=== PATIENT | male | born 1960 ===

== ENCOUNTER 2017-02-10 12:37 | Emergency (ER) | payer OTHER ==
[2017-02-10 13:30] VITALS: BP 136/87
--- NOTE | 2017-02-10 13:32 | UC ---
Lower Extremity/Ankle HPI - HPI Summary HPI Summary: Patient presents to with CC of right lateral foot pain with deformity x several years with now worsening pain. He notes to accidentally hitting the side of the foot yesterday with now worsening pain. He is ambulating but with pain. He states the deformity has been present, but only has intermittent pain when he inadvertently bumps it or wears certain shoes. Denies diabetes or other health problems. - History of Current Complaint Chief Complaint: UCLowerExtremity Stated Complaint: RIGHT FOOT PAIN Time Seen by Provider: 02/10/17 12:59 Hx Obtained From: Patient Onset/Duration: Sudden Onset Severity Initially: Moderate Severity Currently: Moderate Pain Intensity: 8 Pain Scale Used: 0-10 Numeric Aggravating Factor(s): Standing, Ambulation Alleviating Factor(s): Rest Able to Bear Weight: No - Risk Factors Gout Risk Factors: Negative DVT Risk Factors: Negative Septic Arthritis Risk Factor: Negative - Allergies/Home Medications Allergies/Adverse Reactions: Allergies Allergy/AdvReac Type Severity Reaction Status Date / Time No Known Allergies Allergy Verified 02/10/17 12:59 Home Medications: Home Medications Amlodipine Besylate [Norvasc 2.5 mg tab] 2.5 mg PO DAILY 02/10/17 [History Confirmed 02/10/17] Escitalopram Oxalate [Lexapro 10 mg] 10 mg PO DAILY 02/10/17 [History Confirmed 02/10/17] Gabapentin CAP(*) [Neurontin 100 mg CAP(*)] 100 mg PO TID 02/10/17 [History Confirmed 02/10/17] Metoprolol Succinate [Toprol Xl] 25 mg PO DAILY 02/10/17 [History Confirmed ] Oxycodone W/ Acetaminophen [Endocet] 1 tab PO DAILY PRN 02/10/17 [History Confirmed 02/10/17] rOPINIRole TAB* [Requip TAB*] 1 mg PO DAILY 02/10/17 [History Confirmed 02/10/17 ] PMH/Surg Hx/FS Hx/Imm Hx Previously Healthy: Yes - Surgical History Surgical History: None - Family History Known Family History: Positive: Unknown - Social History Occupation: Employed Full-time Alcohol Use: None Substance Use Type: None Smoking Status (MU): Never Smoked Tobacco Review of Systems Constitutional: Negative Skin: Negative Respiratory: Negative Cardiovascular: Negative Genitourinary: Negative Motor: Negative Neurovascular: Negative Musculoskeletal: Arthralgia - lateral foot deformity Neurological: Negative Psychological: Negative All Other Systems Reviewed And Are Negative: Yes Physical Exam Triage Information Reviewed: Yes Appearance: Well-Appearing, No Pain Distress, Well-Nourished Vital Signs: Initial Vital Signs Temp 98.2 F 02/10/17 12:41 Pulse 64 02/10/17 12:41 BP 136/87 02/10/17 12:41 Pulse Ox 97 02/10/17 12:41 Vital Signs Reviewed: Yes Eyes: Positive: Conjunctiva Clear ENT Exam: Normal ENT: Positive: Normal ENT inspection Neck exam: Normal Neck: Positive: Supple, No Lymphadenopathy Respiratory Exam: Normal Respiratory: Positive: Chest non-tender, Lungs clear Cardiovascular Exam: Normal Cardiovascular: Positive: RRR Musculoskeletal: Positive: ROM Intact, Other: - deformity over lateral right foot Neurological Exam: Normal Neurological: Positive: Alert Psychological: Positive: Normal Response To Family, Age Appropriate Behavior Skin Exam: Normal Lower Extremity Course/Dx - Course Course Of Treatment: Patient sent to ay. Soft tissue swelling noted over the lateral right foot with obvious deformity. He stated on arrival that he has been taking ibuprofen and tylenol without relief of pain. He is requesting something stronger for pain medicine and stated he did not know what "oxycodone or percoset" meant asked about side effects. It was explained to patient about side effects and he stated he would like those medications. Upon Istop, it shows he was recently dispersed those medications for unknown reasons. Upon informing the patient, he became agitated and requested to be discharged. Referral for Dr. Mendoza given. - Differential Dx/Diagnosis Differential Diagnosis/HQI/PQRI: Fracture (Closed), Fracture (Open), Sprain, Strain Provider Diagnoses: Soft tissue swelling over lateral right foot Discharge - Discharge Plan Condition: Stable Disposition: HOME Patient Education Materials: Soft Tissue Mass (ED) Referrals: Shaji LEE,Gregg Mckinley [Doctor of Podiatric Medicine] - Non Staff,Doctor [Primary Care Provider] - Additional Instructions: Follow up with Dr. Girard as soon as possible Ibuprofen 600mg three times daily as needed for pain For breakthrough pain not well controlled with ibuprofen, you may take your Oxycodone with acetaminophen for pain. Also, follow up with your PCP
--- NOTE | 2017-02-10 13:57 | RAD ---
INDICATION: Right foot deformity with pain. TECHNIQUE: 3 views of the right foot were obtained. FINDINGS: There is focal area of soft tissue swelling at the base of the fifth metatarsal. No fracture or significant focal osseous abnormality is seen. No abnormal calcifications are noted. Joint spaces appear maintained. IMPRESSION: FOCAL SOFT TISSUE SWELLING AT THE BASE OF THE FIFTH METATARSAL. IF THE PATIENT'S SYMPTOMS PERSIST CONSIDER MR IMAGING FOR FURTHER EVALUATION.
== END 2017-02-10 14:16 | disposition home or self-care (01) ==
LOC: UCCORT 12:37
DX: M79.89 Other specified soft tissue disorders (principal)
CPT/HCPCS: 99201; G0463